=== PATIENT | male | born 1940 | race Caucasian/White ===

== ENCOUNTER 2016-09-08 06:35 | Outpatient (CLI) | payer MEDICARE ==
[~2016-09-08] VITALS: Ht 177.8 cm; Wt 90.0 kg
[~2016-09-08 06:35] MED LIST: ARANESP40 MCG/ML SQ; BACTROBAN NASAL1 GM NS; BAYER CHEWABLE81 MG PO; BUMEX2 MG; COLCRYS0.6 MG PO; COREG12.5 MG PO; FERRLECIT62.5 MG/5 IV; GLUCOTROL 5 MG T5 MG PO; HYTRIN1 MG PO; LIDOCAINE-PRILOC5 GM TP; ORAPRED ODT10 MG/TAB PO; PRINIVIL20 MG PO; SEA OMEGA; ZANTAC150 MG PO; ZOCOR20 MG PO; ZYLOPRIM100 MG PO
--- NOTE | 2016-09-08 07:30 | NUR ---
ASSESSMENT AND HISTORY COMPLETED. #20 GUAGE IV STARTED FOR PLATELET INFUSION.
[2016-09-08] MEDS ORDERED: TACROLIMUS ANHYD1 MG PO (07:40)
--- NOTE | 2016-09-08 07:40 | NUR ---
FIRST UNIT OF PLATELETS STARTED WITH BLOOD TUBING AND NS.
[2016-09-08] MEDS ORDERED: PREDNISONE5 MG PO (07:41)
[2016-09-08] MEDS ORDERED: CELLCEPT250 MG PO (07:41)
[2016-09-08] MEDS ORDERED: KLOR-CON M2020 MEQ PO (07:42)
[2016-09-08] MEDS ORDERED: FUROSEMIDE40 MG PO (07:43)
[2016-09-08] MEDS ORDERED: LASIX80 MG PO (07:43)
[2016-09-08] MEDS ORDERED: MAGNESIUM OXID420 MG PO (07:45)
[2016-09-08] MEDS ORDERED: GLUCOTROL 5 MG T5 MG PO (07:46)
[2016-09-08] MEDS ORDERED: LANTUS SOL100 UNIT/1 SC ×2 (07:46)
[2016-09-08] MEDS ORDERED: LIPITOR20 MG PO (07:47)
[2016-09-08] MEDS ORDERED: PACERONE200 MG PO (07:48)
[2016-09-08] MEDS ORDERED: HYTRIN1 MG PO (07:48)
--- NOTE | 2016-09-08 07:55 | NUR ---
FIRST UNIT COMPLETED. SECOND UNIT OF PLATELETS UP WITH NS AND BLOOD TUBING. NO RASH OR FEVER. STATES "I HAD SOME ITCHING, IT'S GONE NOW THOUGH." "I USUALLY HAVE A LITTLE ITCHING WHEN I GET PLATELETS". INSTRUCTED THAT ITCHING COULD BE A SIGN OF REACTION. STATES "I THINK I JUST GOT HOT. DENIES ITCHING AT THIS TIME. NO RASH, FEVER NOTED. VITAL SIGNS STABLE.
[2016-09-08 07:59] VITALS: Ht 177.8 cm; Wt 90.0 kg
--- NOTE | 2016-09-08 08:40 | NUR ---
SECOND UNIT COMPLETED. NO ITCHING, RASH, OR FEVER. UP TO BATHROOM, VOIDED WITHOUT DIFFICULTY. IV CONVERTED TO SL FOR DENTAL PROCEDURE.
== END 2016-09-08 09:40 ==
LOC: D.OPS 06:35
DX: Z01.818 Encounter for other preprocedural examination (principal); D69.6 Thrombocytopenia, unspecified

== ENCOUNTER → 2017-11-07 13:00 | Outpatient (CLI) | payer MEDICARE ==
[2016-09-08 07:59] VITALS: BMI 28.4
[~2017-11-07 13:00] MED LIST changes: +CELLCEPT250 MG PO; +FUROSEMIDE40 MG PO; +KLOR-CON M2020 MEQ PO; +LANTUS SOL100 UNIT/1 SC; +LASIX80 MG PO; +LIPITOR20 MG PO; +MAGNESIUM OXID420 MG PO; +PACERONE200 MG PO; +PREDNISONE5 MG PO; +TACROLIMUS ANHYD1 MG PO
== END | disposition home or self-care (01) ==
LOC: D.RAD 13:00
DX: M54.5 Low back pain (principal); M25.551 Pain in right hip

== ENCOUNTER 2018-06-07 18:58 | Inpatient (IN) | payer OTHER ==
[~2018-06-07] VITALS: Ht 177.8 cm; Wt 94.3 kg
[2018-06-07] MEDS ORDERED: CELLCEPT250 MG PO (19:08)
[2018-06-07] MEDS ORDERED: SANDIMMUNE100 MG PO (19:08)
[2018-06-07] MEDS ORDERED: CELEXA20 MG PO (19:09)
[2018-06-07] MEDS ORDERED: MAGNESIUM OXID420 MG PO (19:09)
[2018-06-07] MEDS ORDERED: TERAZOSIN HCL2 MG PO (19:09)
[2018-06-07 19:57] LABS: APPEARANCE CLEAR (CLEAR); BILIRUBIN NEGATIVE (NEGATIVE); COLOR YELLOW (YELLOW); GLUCOSE 50 mg/dL (NEGATIVE); KETONE NEGATIVE (NEGATIVE); NITRITE NEGATIVE (NEGATIVE); PROTEIN TRACE mg/dL (NEGATIVE); UROBILINOGEN NORMAL (NORMAL)
[2018-06-07 20:00] LABS: RED CELLS - URINE OCC /hpf (0-5)
[2018-06-07 20:01] LABS: BACTERIA FEW /hpf (NONE SEEN)
[2018-06-07 20:52] LABS: BASOPHILS 0.2 % (0-2); EOSINOPHILS 0.9 % (0-7); HEMATOCRIT 42.6 % (42.0-54.0); HEMOGLOBIN 14.2 g/dL (13.5-17.5); IMMATURE GRANULOCYTES 0.5 % (0-5); LYMPHOCYTES 9.5 % (15-50); MCH 30.9 pg (26.0-34.0); MCHC 33.3 g/dL (31.0-37.0); MCV 92.8 fL (80.0-100.0); MEAN PLATELET VOLUME 12.2 fL (7.4-10.4); MONOCYTES 7.1 % (2-11); NEUTROPHILS 81.8 % (40-80); RBC 4.59 10x6/uL (4.20-6.10); RDW 15.5 % (11.5-14.5)
[2018-06-07 20:57] LABS: PLATELET COUNT 102 10x3/uL (130-400)
[2018-06-07 20:58] LABS: APTT 34.9 SECONDS (22.8-39.4); INR 1.21 (0.85-1.17); PROTIME 14.8 SECONDS (11.6-15.0)
[2018-06-07 21:02] LABS: ALBUMIN 3.3 g/dL (3.4-5.0); ALKALINE PHOSPHATASE 123 U/L (46-116); ALT (SGPT) 16 U/L (10-68); BILIRUBIN - TOTAL 1.28 mg/dL (0.2-1.3); CALC OSMOLALITY 299 mosm/kg (275-300); CALCIUM 9.1 mg/dL (8.5-10.1); CARBON DIOXIDE 27.7 mmol/L (21.0-32.0); CHLORIDE - SERUM 103 mmol/L (98-107); CREATININE - SERUM 1.3 mg/dL (0.6-1.3); GLUCOSE 252 mg/dL (74-106); POTASSIUM - SERUM 3.4 mmol/L (3.5-5.1); PROTEIN - SERUM 6.7 g/dL (6.4-8.2); SODIUM 143 mmol/L (136-145); UREA NITROGEN 28 mg/dL (7-18); eGFR NON AFRICAN AMERICAN 57 mL/min (90-120)
[2018-06-07 21:14] LABS: CKMB 1.5 U/L (0.0-3.6); CREATINE KINASE 60 UL (21-232)
[2018-06-07 21:19] LABS: TROPONIN-I < 0.017 ng/mL (0.000-0.060)
--- NOTE | 2018-06-07 23:33 | NUR ---
PT ARRIVED TO FLOOR BY WHEELCHAIR, NO S/S OF DISTRESS. INTRODUCED SELF TO PT. PT DENIES FURTHER NEEDS AT THIS TIME. VITALS STABLE. CALL LIGHT IN REACH. WILL CTM.
[2018-06-07 23:46] VITALS: BP 122/64; BMI 29.5
--- NOTE | 2018-06-07 23:54 | NUR ---
RESEARCH PSYCHOLOGIST ASSESSMENT COMPLETED. PT DENIED ANY DISCOMFORT. VSS. IV TO RAC SL. L ARM RED AND SWOLLEN TO SHOULDER. FISTULA NOTED WITH BRUIT AND THRILL OBTAINED. SORE UNDER UMBILICUS APPROX 6CM IN DIAMETER. LUNGS ESSENTIALLY CTA. CALL LIGHT WITHIN REACH.
[2018-06-08] VITALS (7 sets, daily range): BP systolic 121–148; BP diastolic 64–89
[2018-06-08 05:37] LABS: BASOPHILS 0.2 % (0-2); EOSINOPHILS 1.6 % (0-7); HEMATOCRIT 38.9 % (42.0-54.0); HEMOGLOBIN 13.2 g/dL (13.5-17.5); IMMATURE GRANULOCYTES 0.5 % (0-5); LYMPHOCYTES 11.5 % (15-50); MCH 31.2 pg (26.0-34.0); MCHC 33.9 g/dL (31.0-37.0); MONOCYTES 6.8 % (2-11); NEUTROPHILS 79.4 % (40-80); PLATELET COUNT 118 10x3/uL (130-400); RBC 4.23 10x6/uL (4.20-6.10); RDW 15.3 % (11.5-14.5); WBC 12.1 10x3/uL (4.8-10.8)
[2018-06-08 05:58] LABS: ANION GAP 15.7 mmol/L (8-16); CALCIUM 8.6 mg/dL (8.5-10.1); CREATININE - SERUM 1.1 mg/dL (0.6-1.3); MAGNESIUM - SERUM 1.7 mg/dL (1.8-2.4); PHOSPHOROUS 2.7 mg/dL (2.5-4.9)
[2018-06-08 06:29] LABS: POTASSIUM - SERUM 2.7 mmol/L (3.5-5.1)
--- NOTE | 2018-06-08 06:33 | NUR ---
PAGED NURSE PRACTICIONER CASSEROLE PREPARER REGARDING PT POTASSIUM OF 2.7.
--- NOTE | 2018-06-08 06:41 | NUR ---
NURSE PRACTICIONER ASIYA HARRISON CALLED BACK, ORDERED 40 MEQ OF KDUR TO BE GIVEN NOW AND THEN 40 MEQ TO BE GIVEN AT 11 AND THEN RECHECKED
--- NOTE | 2018-06-08 07:30 | NUR ---
A/A/OX4. DENIES ANY PAIN OR DISCOMFORT AND NO REQUESTS VOICED. ASSESSMENT COMPLETED. WILL CONTINUE POC. BED IN LOW POSITION AND LOCKED. SIDERAILS UP X 2 AND CALL LIGHT IN REACH.
--- NOTE | 2018-06-08 16:09 | NUR ---
AGRRE WITH STRUCTURES MECHANIC ASSESSMENT
--- NOTE | 2018-06-08 19:37 | NUR ---
AWAKE AND ALERT PATIENT IS APPEARENTLY TALKING SOME MEDS ON HIS OWN AND WAS REPORTED MD AWARE...LCTA AND SKIN WARM AND DRY
--- NOTE | 2018-06-09 00:39 | NUR ---
I have reviewed this patient and I concur with the Shift Assessment completed by the Licensed Practical Nurse today this shift.
[2018-06-09 03:55] VITALS: BP 118/90
[2018-06-09 06:19] LABS: BASOPHILS 0.2 % (0-2); EOSINOPHILS 2.8 % (0-7); HEMATOCRIT 39.6 % (42.0-54.0); HEMOGLOBIN 13.1 g/dL (13.5-17.5); IMMATURE GRANULOCYTES 0.9 % (0-5); LYMPHOCYTES 11.1 % (15-50); MCH 30.5 pg (26.0-34.0); MCHC 33.1 g/dL (31.0-37.0); MCV 92.1 fL (80.0-100.0); MEAN PLATELET VOLUME 12.4 fL (7.4-10.4); MONOCYTES 7.3 % (2-11); NEUTROPHILS 77.7 % (40-80); PLATELET COUNT 123 10x3/uL (130-400); RDW 15.2 % (11.5-14.5); WBC 11.6 10x3/uL (4.8-10.8)
[2018-06-09 06:36] LABS: ANION GAP 13.3 mmol/L (8-16); CALCIUM 8.4 mg/dL (8.5-10.1); CARBON DIOXIDE 26.7 mmol/L (21.0-32.0); CREATININE - SERUM 1.2 mg/dL (0.6-1.3); PHOSPHOROUS 2.9 mg/dL (2.5-4.9); VANCOMYCIN - RANDOM 3.4 ug/mL (10.0-20.0)
[2018-06-09 06:38] LABS: MAGNESIUM - SERUM 2.3 mg/dL (1.8-2.4)
[2018-06-09 08:05] VITALS: BP 141/104
[2018-06-09 12:26] VITALS: BP 136/98
[2018-06-09 15:49] VITALS: BP 132/86
--- NOTE | 2018-06-09 17:23 | NUR ---
AGREE WITH SALES AND MARKETING DIRECTOR ASSESSMENT
[2018-06-09 19:55] VITALS: BP 142/82
--- NOTE | 2018-06-09 20:04 | NUR ---
GREETED PATIENT AND INTRODUCED MYSELF HIS NURSE FOR THE EVENING. PATIENT IS LAYING IN BED IN SUPINE POSITION AND DENIES ANY NEEDS AT THIS TIME. FLUSHED RT AC IV AND SALINE LOCKED. PATIENT TOLERATED PROCEDURE. CALL LIGHT IN REACH.
--- NOTE | 2018-06-10 01:05 | NUR ---
PATIENT ASLEEP WITH EYES CLOSED LAYING IN SUPINE POSITION. HOB AT 15 DEGREES. RESPIRATIONS EVEN. NO S/S OF DISTRESS. CALL LIGHT IN REACH.
--- NOTE | 2018-06-10 02:59 | NUR ---
RECEIVED PHONE CALL FROM LAB STATING THAT PATIENT HAD PRELIMINARY POSITIVE BLOOD CULTURE FOR GRAM POSITIVE RODS. WILL PASS INFORMATION TO ONCOMING NURSE.
--- NOTE | 2018-06-10 03:15 | NUR ---
PATIENT AWAKE AND SITTING ON SIDE OF BED. PATIENT STATED THAT HE FELT LIKE HE HAD INDIGESTION BUT REFUSED TO TAKE ANYTHING FOR IT.
[2018-06-10 03:50] VITALS: BP 147/99
[2018-06-10 07:14] LABS: BASOPHILS 0.2 % (0-2); EOSINOPHILS 2.4 % (0-7); HEMATOCRIT 39.1 % (42.0-54.0); HEMOGLOBIN 12.9 g/dL (13.5-17.5); IMMATURE GRANULOCYTES 1.5 % (0-5); LYMPHOCYTES 10.9 % (15-50); MCH 30.5 pg (26.0-34.0); MCV 92.4 fL (80.0-100.0); MEAN PLATELET VOLUME 12.3 fL (7.4-10.4); MONOCYTES 7.8 % (2-11); NEUTROPHILS 77.2 % (40-80); PLATELET COUNT 114 10x3/uL (130-400); RBC 4.23 10x6/uL (4.20-6.10); RDW 15.2 % (11.5-14.5); WBC 12.1 10x3/uL (4.8-10.8)
[2018-06-10 07:26] LABS: ANION GAP 15.5 mmol/L (8-16); CALCIUM 8.6 mg/dL (8.5-10.1); CARBON DIOXIDE 24.6 mmol/L (21.0-32.0); CREATININE - SERUM 1.3 mg/dL (0.6-1.3); PHOSPHOROUS 2.8 mg/dL (2.5-4.9); POTASSIUM - SERUM 3.1 mmol/L (3.5-5.1); VANCOMYCIN - RANDOM 7.6 ug/mL (10.0-20.0)
--- NOTE | 2018-06-10 07:38 | NUR ---
REPORT RECEIVED. WILL CONTINUE WITH POC. PT IS CURRENTLY LYING SEMI FOWLERS. CALL LIGHT W/I REACH. PT IS AAO AND UP WITH ASSIST. R.AC PIV IS SALINE LOCKED. RR EVEN AND UNLABORED ON RA. PT DENIES ANY NEEDS AT THIS TIME. NO S/S OF DISTRESS NOTED. WILL CTM.
[2018-06-10 08:28] VITALS: BP 135/64
--- NOTE | 2018-06-10 11:16 | NUR ---
HAD LONG DISCUSSION WITH PATIENT OVER MEDICATIONS. PT REFUSED TO TAKE CELLCEPT AND CYCLOSPORINE STATING "YALL DONT GIVE ME THE RIGHT DOSE, PHARMACY TOLD ME TO KEEP MY MEDS IN THE ROOM, TO TAKE MY OWN MEDS, AND THOSE MEDS ARE TOO EXPENSIVE, IM NOT TAKING THEM." PT WOULD ALLOW ME TO ADMINISTER VARIOUS OTHER SCHEDULED AM MEDICATIONS. WILL NOTIFY PHYSICIAN. WILL CTM.
[2018-06-10 11:40] VITALS: BP 119/68
[2018-06-10 14:55] VITALS: BP 123/62
--- NOTE | 2018-06-10 15:47 | NUR ---
I have reviewed this patient and I concur with the Shift Assessment completed by the Licensed Practical Nurse today this shift.
--- NOTE | 2018-06-10 15:47 | NUR ---
I have reviewed this patient and I concur with the Shift Assessment completed by the Licensed Practical Nurse today this shift.
[2018-06-10 20:05] VITALS: BP 133/77
--- NOTE | 2018-06-11 01:45 | NUR ---
RESTING ON LEFT SIDE, RESPERATIONS EVEN, NO S/S DISTRESS NOTED.
[2018-06-11 03:47] VITALS: BP 141/95
[2018-06-11 05:50] LABS: BASOPHILS 0.6 % (0-2); EOSINOPHILS 2.7 % (0-7); HEMATOCRIT 38.1 % (42.0-54.0); HEMOGLOBIN 12.6 g/dL (13.5-17.5); MCH 30.4 pg (26.0-34.0); MCHC 33.1 g/dL (31.0-37.0); MEAN PLATELET VOLUME 12.3 fL (7.4-10.4); MONOCYTES 6.7 % (2-11); PLATELET COUNT 118 10x3/uL (130-400); RBC 4.14 10x6/uL (4.20-6.10); RDW 15.1 % (11.5-14.5); WBC 10.8 10x3/uL (4.8-10.8)
[2018-06-11 06:29] LABS: ANION GAP 12.3 mmol/L (8-16); CALCIUM 8.6 mg/dL (8.5-10.1); CARBON DIOXIDE 25.6 mmol/L (21.0-32.0); CREATININE - SERUM 1.2 mg/dL (0.6-1.3); MAGNESIUM - SERUM 1.8 mg/dL (1.8-2.4); PHOSPHOROUS 3.1 mg/dL (2.5-4.9); VANCOMYCIN - RANDOM 10.1 ug/mL (10.0-20.0)
[2018-06-11 06:42] LABS: POTASSIUM - SERUM 2.9 mmol/L (3.5-5.1)
--- NOTE | 2018-06-11 07:00 | NUR ---
RECEIVED BEDSIDE SHIFT REPORT. ASSUMED CARE OF PATIENT. PATIENT ALERT, AWAKE. FAMILY AT BEDSIDE. CALL LIGHT WITHIN REACH. NO DISTRESS. DENIES NEEDS AT THIS TIME.
--- NOTE | 2018-06-11 07:30 | NUR ---
SOCKS AND LOTION PROVIDED REQUESTED.
[2018-06-11 08:26] VITALS: BP 159/79
--- NOTE | 2018-06-11 09:45 | NUR ---
K+ RIDER #2 HUNG AT THIS TIME. NO DISTRESS. CALL LIGHT AND PHONES WITHIN REACH.
--- NOTE | 2018-06-11 11:02 | NUR ---
K+ RIDER #3 HUNG AT THIS TIME. NO DISTRESS.
[2018-06-11 11:44] VITALS: BP 155/74
--- NOTE | 2018-06-11 12:00 | NUR ---
K+ RIDER #4 HUNG AT THIS TIME. NO DISTRESS.
--- NOTE | 2018-06-11 12:07 | NUR ---
FSBS 244. 5 UNITS HUMALOG ADMINISTERED ORDERED.
--- NOTE | 2018-06-11 12:45 | MORECARE ---
CASE MANAGEMENT DISCHARGE SUMMARY PATIENT: SANTY SEO JR UNIT: [id number] ADM DATE: 06/07/18 AGE: 77 : 39 SEX: M ROOM/BED: D.2133 AUTHOR: TOBIN KIRKPATRICK PHYSICIAN: REFERRING PHYSICIAN: VEE BILLINGS MD DATE OF SERVICE: 06/11/18 Discharge Plan Patient Name: SANTY SEO Facility: [facility]:[place] : 1940 Planned Disposition: Anticipated Discharge Date: Discharge Date: Expected LOS: Initial Reviewer: [id number] Initial Review Date: 06/11/2018 Generated: 06/11/18 1:45 pm Comments DCP- Discharge Planning Updated by [email or web address]: Shameka Mckeon on 06/11/18 11:[address] Patient Name: SANTY SEO Admission Status: ER Accout number: [id number] Admission Date: 06-07-2018 : 1940 Admission Diagnosis: Attending: Vee Billings Current LOS: 4 Anticipated DC Date: Planned Disposition: Primary Insurance: [employer]gree Discharge Planning Comments: CM MET WITH PATIENT ABOUT DC PLANNING/NEEDS. DENIES NEEDS AT THIS TIME. STATES PLANS TO DC TO HOME WITH WHEN BETTER. CM WILL FOLLOW AND ASSIST NEEDED WITH DC PLANNING/NEEDS. Certified Legal Secretary Specialist: Shameka Mckeon DCPIA - Discharge Planning Initial Assessment Updated by [email or web address]: Shameka Mckeon on 06/11/18 12:41 pm * Is the patient Alert and Oriented? Yes * PCP JOAN * Pharmacy [facility] * Preadmission Environment Home with Family * ADLs Independent * Equipment None * List name and contact numbers for known caregivers / representatives who currently or will assist patient after discharge: DE MENDEZ, * Verbal permission to speak to the caregivers and representatives has been obtained from the patient. Yes * Community resources currently utilized None * Additional services required to return to the preadmission environment? No * Can the patient safely return to the preadmission environment? Yes * Has this patient been hospitalized within the prior 30 days at any hospital? No Patient Name: SANTY SEO Page [phone] at 1245 All edits/amendments must be made on the electronic document DICTATION DATE: 06/11/181243 SUPERMARKET MANAGER: JUMANA 06/11/181243 RPT#: [id number] [place] DATE: STATUS: ADM IN [facility] [address] [place] [address] END OF REPORT
[2018-06-11 15:34] VITALS: BP 153/82
--- NOTE | 2018-06-11 16:34 | NUR ---
FSBS 204. 5 UNITS HUMALOG ADMINISTERED PER ORDER.
--- NOTE | 2018-06-11 19:30 | NUR ---
BEDSIDE REPORT RECEIVED, PT IS AAO. PT HAS RIGHT AC PATENT CDI, PT IS [place] AND [place], NO S/S OF DISTRESS. NAME AND DATE PLACED ON BOARD. PT BEDLOW AND CALL LIGHT IN REACH. PT WILL CALL FOR ASSIST WILL CPOC
[2018-06-11 20:00] VITALS: BP 149/79
--- NOTE | 2018-06-11 21:15 | NUR ---
FSBS IS 279 PT ONLY GETS LANTUS 5 UNITS PT SITTING ON SIDE OF BED. DENIES ANY NEEDS. NO S/S OF DISTRESS. WILL CPOC
[2018-06-11 23:55] VITALS: BP 137/90
--- NOTE | 2018-06-12 00:12 | NUR ---
PT SITTING ON SIDE OF BED. COMPLAINS OF COUGH. STATES PRODUCTIVE AT TIMES. PT STATES HE HAS A HISTORY OF IRREGULAR HR AND A FIB BUT JUST WHEN HE IS SICK. STATES HE DOESNT TAKE ANY MEDICATION AT HOME FOR IT. 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
--- NOTE | 2018-06-12 01:54 | NUR ---
PT ASLEEP. RESP EVEN AND UNLABORED. BEDLOW AND CALL LIGHT IN REACH. WILL CPOC
--- NOTE | 2018-06-12 02:26 | NUR ---
PT COMPLAINS OF DYSPNEA. ONCE PT COUGHED UP SOME WHITE SPUTUM AND DIDNT LAY FLAT HE STATED HE FEELS BETTER. PT LAYING IN BED WITH HOB 35 DEGREE. HAS NO S/S OF DISTRESS. STATES HE IS SORRY FOR BOTHERING NURSE. ENCOURAGED PT TO CALL IF ANY MORE DYSPNEA OR SOB. PT AGREED. PT WILL CALL FOR ASSIST WHEN NEEDED. WILL CPOC
[2018-06-12 03:55] VITALS: BP 148/82
[2018-06-12 06:51] LABS: BASOPHILS 0.5 % (0-2); EOSINOPHILS 2.9 % (0-7); HEMATOCRIT 38.9 % (42.0-54.0); HEMOGLOBIN 12.8 g/dL (13.5-17.5); IMMATURE GRANULOCYTES 2.1 % (0-5); MCH 30.3 pg (26.0-34.0); MCHC 32.9 g/dL (31.0-37.0); MCV 92.2 fL (80.0-100.0); MEAN PLATELET VOLUME 12.5 fL (7.4-10.4); MONOCYTES 6.1 % (2-11); NEUTROPHILS 78.4 % (40-80); PLATELET COUNT 134 10x3/uL (130-400); RBC 4.22 10x6/uL (4.20-6.10); RDW 15.1 % (11.5-14.5); WBC 10.9 10x3/uL (4.8-10.8)
--- NOTE | 2018-06-12 07:10 | NUR ---
REPORT RECIEVED FORM INTERNAL REVIEW AND AUDIT COMPLIANCE. PATIENT LAYING IN BED ON LEFT SIDE WITH EYES CLOSED AND BREATHING EVENLY. WILL CONTINUE TO MONITOR. SR UP X 2 BED IN LOW POTION AND CALL LIGHT IN REACH.
[2018-06-12 07:11] LABS: ALBUMIN 2.8 g/dL (3.4-5.0); BILIRUBIN - TOTAL 1.31 mg/dL (0.2-1.3); CALCIUM 8.7 mg/dL (8.5-10.1); CARBON DIOXIDE 24.2 mmol/L (21.0-32.0); CREATININE - SERUM 1.2 mg/dL (0.6-1.3); PHOSPHOROUS 2.9 mg/dL (2.5-4.9); POTASSIUM - SERUM 3.2 mmol/L (3.5-5.1); PROTEIN - SERUM 6.6 g/dL (6.4-8.2); VANCOMYCIN - RANDOM 17.8 ug/mL (10.0-20.0)
--- NOTE | 2018-06-12 07:21 | NUR ---
PT FSBS IS 125 NO INSULIN NEED. PT FAMILY AT BEDSIDE. PT WILL CALL FOR ASSIST
--- NOTE | 2018-06-12 09:00 | NUR ---
PATIENT IS STABLE AND VSS. PATIENT DENIES ANY NEEDS OR PAIN. ASSESSMENT COMPLETED. WILL CONTINUE WITH PLAN OF CARE. SR UP X 2 BED IN LOW POSITON AND CALL LIGHT IN REACH.
[2018-06-12 10:23] VITALS: BP 156/117
[2018-06-12 14:36] VITALS: BP 150/86
[2018-06-12 16:59] VITALS: BP 152/77
--- NOTE | 2018-06-12 17:51 | NUR ---
PATIENT SITTING UP IN BED EATING SUPPER AND VISITING WITH FAMILY. PATIENT DENEIS ANY NEEDS OR PAIN. PATIENT IS STABLE AND VSS. WILL CONTINUE TO MONITOR. SR UP X 2 BED IN LOW POSITON AND CALL LIGHT IN REACH.
--- NOTE | 2018-06-12 19:40 | NUR ---
PT RESTING IN BED. PT STATES FEELS BETTER NOW THAT HE COUGHED UP SOME OF THE SPUTUM. PT DENIES ANY NEEDS AT THIS TIME. CHECKED FSBS IT IS 216 PT BEDLOW AND CALL LIGHT INREACH. NAME AND DATE PLACED ON BOARD. PT WILL CALL FOR ASSIST WHEN NEEDED. WILL CPOC
[2018-06-12 20:32] VITALS: BP 129/85
--- NOTE | 2018-06-12 21:33 | NUR ---
5 UNITS OF LANTUS GIVEN ORDERED. FSBS IS 216 NOURISHMENT OFFERED. PT SITTING ON SIDE OF BED. COUGHING PRODUCTIVE. WHITE-YELLOW SPUTUM. PT HAS NO S/S OF DISTRESS. BEDLOW AND CALL LIGHT IN REACH. WILL CPOC
[2018-06-13 00:04] VITALS: BP 137/48
--- NOTE | 2018-06-13 00:05 | NUR ---
PT AROUSED TO NURSE IN ROOM. ZOSYN STARTED ORDERED. PT UP TO USE URINAL. PT DENIES ANY NEEDS. NO S/S OF DISTRESS. WILL CPOC
--- NOTE | 2018-06-13 01:59 | NUR ---
PT ASLEEP. RESP EVEN AND UNLABORED. BEDLOW AND CALL LIGHT IN REACH. PT HAS NO S/S OF DISTRESS. NOURISHMENT IN REACH. WILL CPOC
[2018-06-13 05:31] LABS: BASOPHILS 0.5 % (0-2); HEMOGLOBIN 13.3 g/dL (13.5-17.5); IMMATURE GRANULOCYTES 3.4 % (0-5); MCH 30.3 pg (26.0-34.0); MCHC 33.3 g/dL (31.0-37.0); MCV 91.1 fL (80.0-100.0); MEAN PLATELET VOLUME 11.9 fL (7.4-10.4); MONOCYTES 7.1 % (2-11); PLATELET COUNT 143 10x3/uL (130-400); RBC 4.39 10x6/uL (4.20-6.10); WBC 9.1 10x3/uL (4.8-10.8)
[2018-06-13 05:58] LABS: ANION GAP 16.3 mmol/L (8-16); CALCIUM 8.5 mg/dL (8.5-10.1); CARBON DIOXIDE 24.4 mmol/L (21.0-32.0); CREATININE - SERUM 1.1 mg/dL (0.6-1.3); PHOSPHOROUS 2.9 mg/dL (2.5-4.9)
--- NOTE | 2018-06-13 05:58 | NUR ---
PT SET UP ON SIDE OF BED ONCE NURSE CAME INTO ROOM. PT STATES HE EMPTIED URINAL ON OWN LAST NIGHT. HAD PT APPROX. GIVE NURSE CORRECT MEASUREMENTS AND EXPRESSED IMPORTANCE OF CORRECT OUTPUT. PT VERBALIZED UNDERSTANDING. PT WILL CALL FOR ASSIST. WILL CPOC
[2018-06-13 06:04] VITALS: BP 171/90
[2018-06-13 06:11] LABS: POTASSIUM - SERUM 2.7 mmol/L (3.5-5.1)
--- NOTE | 2018-06-13 06:35 | NUR ---
NO INSULIN NEEDED PER SLIDING SCALE. PT WILL CALL FOR ASSIST WHEN NEEDED.
--- NOTE | 2018-06-13 07:10 | NUR ---
REPORT RECIEVED FROM MARKETING STRATEGY LEAD. PATIENT IS AWAKE AND ALERT. VSS. PATIENT DENIES ANY NEEDS OR PAIN. WILL CONTINUE WITH PLAN OF CARE.
[2018-06-13 07:53] VITALS: BP 163/80
--- NOTE | 2018-06-13 09:30 | NUR ---
PATIENT ASSESMENT COMPLETED. VSS. WILL CONTINUE TO MONITOR. SR UP X 2 BED IN LOW POSTION AND CALL LIGHT IN REACH.
[2018-06-13 11:18] VITALS: BP 151/85
[2018-06-13 15:44] VITALS: BP 174/95
--- NOTE | 2018-06-13 16:15 | NUR ---
PATIENT IS STABLE AND UNCHANGED. VSS. PATIENT DENIES ANY NEEDS OR PAIN. WILL CONTINUE TO MONITOR. FAMILY AT BEDSIDE. SR UP X 2 BED IN LOW POSTION AND CALL LIGHT IN REACH.
--- NOTE | 2018-06-13 19:40 | NUR ---
RESUMING CARE. PT SITTING UP ON SIDE OF BED A&O BREATH SOUNDS EVEN UNLABORED , RT WRIST IV RUNNING NS , PT IS RESERVED LEFT ARM FAMILY AT BEDSIDE CL IN REACH WILL CONT TO MONITOR
[2018-06-13 20:00] VITALS: BP 162/98
[2018-06-14 04:00] VITALS: BP 137/79
[2018-06-14 06:33] LABS: BASOPHILS 0.4 % (0-2); EOSINOPHILS 2.7 % (0-7); HEMATOCRIT 41.4 % (42.0-54.0); HEMOGLOBIN 13.7 g/dL (13.5-17.5); IMMATURE GRANULOCYTES 3.2 % (0-5); MCH 30.2 pg (26.0-34.0); MCHC 33.1 g/dL (31.0-37.0); MCV 91.4 fL (80.0-100.0); MEAN PLATELET VOLUME 12.9 fL (7.4-10.4); MONOCYTES 7.7 % (2-11); PLATELET COUNT 147 10x3/uL (130-400); RBC 4.53 10x6/uL (4.20-6.10); RDW 15.1 % (11.5-14.5); WBC 7.8 10x3/uL (4.8-10.8)
[2018-06-14 06:55] LABS: ANION GAP 20.3 mmol/L (8-16); CALCIUM 8.6 mg/dL (8.5-10.1); CARBON DIOXIDE 16.3 mmol/L (21.0-32.0); CREATININE - SERUM 1.1 mg/dL (0.6-1.3); MAGNESIUM - SERUM 1.7 mg/dL (1.8-2.4); PHOSPHOROUS 2.8 mg/dL (2.5-4.9); POTASSIUM - SERUM 3.6 mmol/L (3.5-5.1); VANCOMYCIN - RANDOM 7.5 ug/mL (10.0-20.0)
[2018-06-14 08:00] VITALS: BP 149/86
[2018-06-14 12:00] VITALS: BP 111/69
[2018-06-14 13:25] VITALS: Ht 177.8 cm; Wt 94.3 kg
--- NOTE | 2018-06-14 15:33 | NUR ---
UP IN [facility] AMBUL[facility]ORY. C/O SOME SOB WHEN HE RETURNED TO ROOM. SPO2 READING 98%. STATES THE SOB EASED WHEN HE SAT DOWN. NO DISTRESS NOTED.
[2018-06-14 16:36] VITALS: BP 139/88
--- NOTE | 2018-06-14 17:14 | MORECARE ---
CASE MANAGEMENT DISCHARGE SUMMARY PATIENT: SANTY SEO JR UNIT: [id number] ADM DATE: 06/07/18 AGE: 77 : 39 SEX: M ROOM/BED: D.2133 AUTHOR: TOBIN KIRKPATRICK PHYSICIAN: REFERRING PHYSICIAN: VEE BILLINGS MD DATE OF SERVICE: 06/14/18 Discharge Plan Patient Name: SANTY SEO Facility: [facility]:[place] : 1940 Planned Disposition: Home with Home Health Anticipated Discharge Date: 06/15/18 Discharge Date: Expected LOS: 8 Initial Reviewer: [email or web address] Initial Review Date: 06/11/2018 Generated: 06/14/18 6:13 pm Comments DCP- Discharge Planning Updated by [id number]: Shameka cMkeon on 06/11/18 11:[address] Patient Name: SANTY SEO Admission Status: ER Accout number: [id number] Admission Date: 06-07-2018 : 1940 Admission Diagnosis: Attending: Vee Billings Current LOS: 4 Anticipated DC Date: Planned Disposition: Primary Insurance: [employer] Discharge Planning Comments: CM MET WITH PATIENT ABOUT DC PLANNING/NEEDS. DENIES NEEDS AT THIS TIME. STATES PLANS TO DC TO HOME WITH WHEN BETTER. CM WILL FOLLOW AND ASSIST NEEDED WITH DC PLANNING/NEEDS. Mother Tester: Shameka Mckeon DCPIA - Discharge Planning Initial Assessment Updated by [id number]: Shameka Mckeon on 06/11/18 12:41 pm * Is the patient Alert and Oriented? Yes * PCP JOAN * Pharmacy [facility] * Preadmission Environment Home with Family * ADLs Independent * Equipment None * List name and contact numbers for known caregivers / representatives who currently or will assist patient after discharge: DE MENDEZ, * Verbal permission to speak to the caregivers and representatives has been obtained from the patient. Yes * Community resources currently utilized None * Additional services required to return to the preadmission environment? No * Can the patient safely return to the preadmission environment? Yes * Has this patient been hospitalized within the prior 30 days at any hospital? No External Providers [facility] Next Contact Date: 06/14/2018 Service Request Date: Service Type: Resolution: Reviewer: Comments: Coverage Notice Reviewer: [id number] Pia Pantoja Notice Issued Date-Time: 06/14/2018 14:45 Notice Type: Patient Choice Letter Notice Delivered To: Patient Relationship to Patient: Senior Loan Processor Name: Delivery Method: HAND - Hand Delivered [place] Days: Prior Verbal Notification: Recipient Understood Notice: Yes Recipient Signature: Yes Med Rec Note Co-signed by Attending: Coverage Notice Comment: ANY [facility] AGENCY IN NETWORK WITH INSURANCE Reviewer: [id number] Pia Pantoja Notice Issued Date-Time: 06/14/2018 14:45 Notice Type: IM Discharge Notice Notice Delivered To: Patient Relationship to Patient: Senior Loan Processor Name: Delivery Method: HAND - Hand Delivered [place] Days: Prior Verbal Notification: Recipient Understood Notice: Yes Recipient Signature: Yes Med Rec Note Co-signed by Attending: Coverage Notice Comment: Last DP export: 06/11/18 11:45 a Patient Name: SANTY SEO Page 39697 at 1714 All edits/amendments must be made on the electronic document DICTATION DATE: 06/14/181712 LOUVER MORTISER OPERATOR: JUMANA 06/14/181712 RPT#: [id number] DC DATE: STATUS: ADM IN [facility] [address] [place] [address] END OF REPORT
--- NOTE | 2018-06-14 17:24 | NUR ---
PT RESTING QUIETLY RESP UNLABORED TELEMETRY INTACT SINUS TACH 109
--- NOTE | 2018-06-14 17:29 | MORECARE ---
CASE MANAGEMENT DISCHARGE SUMMARY PATIENT: SANTY SEO JR UNIT: [id number] ADM DATE: 06/07/18 AGE: 77 : 39 SEX: M ROOM/BED: D.2133 AUTHOR: TOBIN KIRKPATRICK PHYSICIAN: REFERRING PHYSICIAN: VEE BILLINGS MD DATE OF SERVICE: 06/14/18 Discharge Plan Patient Name: SANTY SEO Facility: [facility]:[employer] : 1940 Planned Disposition: Home with Home Health Anticipated Discharge Date: 06/15/18 Discharge Date: Expected LOS: 8 Initial Reviewer: [email or web address] Initial Review Date: 06/11/2018 Generated: 06/14/18 6:28 pm Comments DCP- Discharge Planning Updated by [id number]: Dave Pantoja on 06/14/18 4:[address] Patient Name: SANTY SEO Admission Status: ER Accout number: [id number] Admission Date: 06-07-2018 : 1940 Admission Diagnosis:CELLULITIS OF LEFT UPPER LIMB Attending: Vee Billings Current LOS: 7 Anticipated DC Date: 06-15-2018 Planned Disposition: Home with Home Health Primary Insurance: [employer] PLANNED EXTERNAL PROVIDER: [facility] Discharge Planning Comments: CM RECEIVED DISCHARGE PLANNING ORDER. CM MET WITH PT ND SPOUSE IN ROOM TO DISCUSS DISCHARGE NEEDS AND PLANNING. SANTY ESO provided verbal consent to discuss current and ongoing needs with/in the presence of:, SPOUSE, ANDREA. CM DISCUSSED AVAILABILITY OF HOME HEALTH, REHAB SERVICES AND MEDICAL EQUIPMENT. PT DENIES DISCHARGE NEEDS BUT WILL ACCEPT HOME HEALTH AT ENCOURAGEMENT OF SPOUSE. SPOUSE TO TRANSPORT HOME AT DISCHARGE. IMPORTANT MESSAGE FROM MEDICARE PROVIDED AND EXPLAINED. CHOICE LISTING PROVIDED, PT HAD NO CHOICE OF PROVIDER, CHOICE SIGNED FOR ANY HOME HEALTH. CM CALLED AND SPOKE TO GAYLE CHERRY WHO PROVIDED HOME HEALTH ORDER. CM CALLED [facility], , SPOKE TO TERRY, REFERRAL PROVIDED, PT PLACED ON SCHEDULE FOR NEXT WEEK. TERRY WILL CHECK WITH INSURANCE AND NOTIFY PT IF THERE IS ANY COPAY FOR HOME HEALTH SERVICES. FOR DISCHARGE, FAX DISCHARGE INFORMATION TO [facility] AT [phone], NOT[facility] HOME HEALTH AT [phone]. Knitting Machine Fixer: Dave Pantoja DCP- Discharge Planning Updated by [id number]: Shameka Mckeon on 06/11/18 11:[address] Patient Name: SANTY SEO Admission Status: ER Accout number: [id number] Admission Date: 06-07-2018 : 1940 Admission Diagnosis: Attending: Vee Billings Current LOS: 4 Anticipated DC Date: Planned Disposition: [facility] Discharge Planning Comments: CM MET WITH PATIENT ABOUT DC PLANNING/NEEDS. DENIES NEEDS AT THIS TIME. STATES PLANS TO DC TO HOME WITH WHEN BETTER. CM WILL FOLLOW AND ASSIST NEEDED WITH DC PLANNING/NEEDS. Knitting Machine Fixer: Shameka Mckeon DCPIA - Discharge Planning Initial Assessment Updated by [id number]: Shameka Mckeon on 06/11/18 12:41 pm * Is the patient Alert and Oriented? Yes * PCP JOAN * Pharmacy [facility] * Preadmission Environment Home with Family * ADLs Independent * Equipment None * List name and contact numbers for known caregivers / representatives who currently or will assist patient after discharge: DE MENDEZ, * Verbal permission to speak to the caregivers and representatives has been obtained from the patient. Yes * Community resources currently utilized None * Additional services required to return to the preadmission environment? No * Can the patient safely return to the preadmission environment? Yes * Has this patient been hospitalized within the prior 30 days at any hospital? No Coverage Notice Reviewer: [email or web address] Pia Pantoja Notice Issued Date-Time: 06/14/2018 14:45 Notice Type: Patient Choice Letter Notice Delivered To: Patient Relationship to Patient: Return To Factory Clerk Name: Delivery Method: HAND - Hand Delivered [place] Days: Prior Verbal Notification: Recipient Understood Notice: Yes Recipient Signature: Yes Med Rec Note Co-signed by Attending: Coverage Notice Comment: ANY [facility] AGENCY IN NETWORK WITH INSURANCE Reviewer: [email or web address] Pia Pantoja Notice Issued Date-Time: 06/14/2018 14:45 Notice Type: IM Discharge Notice Notice Delivered To: Patient Relationship to Patient: Return To Factory Clerk Name: Delivery Method: HAND - Hand Delivered [place] Days: Prior Verbal Notification: Recipient Understood Notice: Yes Recipient Signature: Yes Med Rec Note Co-signed by Attending: Coverage Notice Comment: Last DP export: 06/14/18 4:14 p Patient Name: SANTY SEO Page [phone] at 1729 All edits/amendments must be made on the electronic document DICTATION DATE: 06/14/181727 HAND FRETTED INSTRUMENT MAKER: JUMANA 06/14/181727 RPT#: [id number] DC DATE: STATUS: ADM IN [facility] [address] [place] [address] END OF REPORT
--- NOTE | 2018-06-14 19:47 | NUR ---
EVENING ROUNDS COMPLETED. REPORT RECEIVED. PT SITTING UP ON SIDE OF BED WITH EYES OPEN, RR EVEN AND UNLABORED. CURRENTLY SPEAKING TO HIS . INTRODUCED SELF TO PT. PT DENIES FURTHER NEEDS AT THIS TIME. NO S/S OF DISTRESS NOTED. CALL LIGHT IN REACH. WILL CTM.
[2018-06-14 20:38] VITALS: BP 143/81
[2018-06-15] VITALS: BP 116/82
--- NOTE | 2018-06-15 | NUR ---
I have reviewed this patient and I concur with the Shift Assessment completed by the Licensed Practical Nurse today this shift.
[2018-06-15 04:00] VITALS: BP 151/85
[2018-06-15 05:27] LABS: BASOPHILS 0.2 % (0-2); EOSINOPHILS 1.8 % (0-7); HEMATOCRIT 39.1 % (42.0-54.0); HEMOGLOBIN 12.9 g/dL (13.5-17.5); IMMATURE GRANULOCYTES 1.9 % (0-5); LYMPHOCYTES 9.3 % (15-50); MCH 30.4 pg (26.0-34.0); MCV 92.2 fL (80.0-100.0); MEAN PLATELET VOLUME 12.1 fL (7.4-10.4); MONOCYTES 7.3 % (2-11); NEUTROPHILS 79.5 % (40-80); PLATELET COUNT 155 10x3/uL (130-400); RBC 4.24 10x6/uL (4.20-6.10); RDW 15.1 % (11.5-14.5); WBC 9.1 10x3/uL (4.8-10.8)
[2018-06-15 05:37] LABS: ANION GAP 14.6 mmol/L (8-16); CREATININE - SERUM 1.2 mg/dL (0.6-1.3); POTASSIUM - SERUM 3.9 mmol/L (3.5-5.1)
[2018-06-15 05:42] LABS: CARBON DIOXIDE 23.3 mmol/L (21.0-32.0)
[2018-06-15 08:18] VITALS: BP 149/101
[2018-06-15] MEDS ORDERED: Levaquin PO (12:12)
[2018-06-15 12:32] VITALS: BP 136/76
[2018-06-15 17:08] LABS: AEROBE ID Final report (())
--- NOTE | 2018-06-17 10:41 | MORECARE ---
CASE MANAGEMENT DISCHARGE SUMMARY PATIENT: SANTY SEO JR UNIT: [id number] ADM DATE: 06/07/18 AGE: 77 : 39 SEX: M ROOM/BED: D.2133 AUTHOR: TOBIN KIRKPATRICK PHYSICIAN: REFERRING PHYSICIAN: VEE BILLINGS MD DATE OF SERVICE: 06/17/18 Discharge Plan Patient Name: SANTY SEO Facility: [facility]:[place] : 1940 Planned Disposition: Home with Home Health Anticipated Discharge Date: 06/15/18 Discharge Date: 06/15/2018 Expected LOS: 8 Initial Reviewer: [email or web address] Initial Review Date: 06/11/2018 Generated: 06/17/18 11:41 am Comments DCP- Discharge Planning Updated by [email or web address]: Dave Pantoja on 06/17/18 9:[address] Patient Name: SANTY SEO Encounter No: [id number] : 1940 Primary Insurance: NOVASYSMCR Anticipated DC Date: 06-15-2018 Planned Disposition: Home with Home Health External Planned Provider: [facility] DCP follow-up note: CM REVIEWED CHART, PT DISCHARGED HOME OVER THE WEEKEND. CM NOTIFIED TERRY OF [facility] AT [phone], FAXED DISCHARGE INFORMATION TO [facility] AT [phone]. Lighting Engineering Technician: Dave Pantoja DCP- Discharge Planning Updated by [email or web address]: Dave Pantoja on 06/14/18 4:[address] Patient Name: SANTY SEO Admission Status: ER Accout number: [id number] Admission Date: 06-07-2018 : 1940 Admission Diagnosis:CELLULITIS OF LEFT UPPER LIMB Attending: Vee Billings Current LOS: 7 Anticipated DC Date: 06-15-2018 Planned Disposition: Home with Home Health Primary Insurance: NOVASYSMCR PLANNED EXTERNAL PROVIDER: [facility] Discharge Planning Comments: CM RECEIVED DISCHARGE PLANNING ORDER. CM MET WITH PT ND SPOUSE IN ROOM TO DISCUSS DISCHARGE NEEDS AND PLANNING. SANTY SEO provided verbal consent to discuss current and ongoing needs with/in the presence of:, SPOUSE, ANDREA. CM DISCUSSED AVAILABILITY OF HOME HEALTH, REHAB SERVICES AND MEDICAL EQUIPMENT. PT DENIES DISCHARGE NEEDS BUT WILL ACCEPT HOME HEALTH AT ENCOURAGEMENT OF SPOUSE. SPOUSE TO TRANSPORT HOME AT DISCHARGE. IMPORTANT MESSAGE FROM MEDICARE PROVIDED AND EXPLAINED. CHOICE LISTING PROVIDED, PT HAD NO CHOICE OF PROVIDER, CHOICE SIGNED FOR ANY HOME HEALTH. CM CALLED AND SPOKE TO GAYLE CHERRY WHO PROVIDED HOME HEALTH ORDER. CM CALLED [facility], , SPOKE TO TERRY, REFERRAL PROVIDED, PT PLACED ON SCHEDULE FOR NEXT WEEK. TERRY WILL CHECK WITH INSURANCE AND NOTIFY PT IF THERE IS ANY COPAY FOR HOME HEALTH SERVICES. FOR DISCHARGE, FAX DISCHARGE INFORMATION TO [facility] AT [phone], NOTIFY HOME HEALTH AT [phone]. Lighting Engineering Technician: Dave Pantoja DCP- Discharge Planning Updated by [email or web address]: Shameka Mckeon on 06/11/18 11:[address] Patient Name: SANTY SEO Admission Status: ER Accout number: [id number] Admission Date: 06-07-2018 : 1940 Admission Diagnosis: Attending: Vee Billings Current LOS: 4 Anticipated DC Date: Planned Disposition: Primary Insurance: NOVASYCR Discharge Planning Comments: CM MET WITH PATIENT ABOUT DC PLANNING/NEEDS. DENIES NEEDS AT THIS TIME. STATES PLANS TO DC TO HOME WITH WHEN BETTER. CM WILL FOLLOW AND ASSIST NEEDED WITH DC PLANNING/NEEDS. Lighting Engineering Technician: Shameka Mckeon DCPIA - Discharge Planning Initial Assessment Updated by [id number]: Shameka Mckeon on 06/11/18 12:41 pm * Is the patient Alert and Oriented? Yes * PCP JOAN * Pharmacy [facility] * Preadmission Environment Home with Family * ADLs Independent * Equipment None * List name and contact numbers for known caregivers / representatives who currently or will assist patient after discharge: DE MENDEZ, * Verbal permission to speak to the caregivers and representatives has been obtained from the patient. Yes * Community resources currently utilized None * Additional services required to return to the preadmission environment? No * Can the patient safely return to the preadmission environment? Yes * Has this patient been hospitalized within the prior 30 days at any hospital? No Coverage Notice Reviewer: [email or web address] - Dave Pantoja Notice Issued Date-Time: 06/14/2018 14:45 Notice Type: Patient Choice Letter Notice Delivered To: Patient Relationship to Patient: Acoustic Warfare Analyst Name: Delivery Method: HAND - Hand Delivered [place] Days: Prior Verbal Notification: Recipient Understood Notice: Yes Recipient Signature: Yes Med Rec Note Co-signed by Attending: Coverage Notice Comment: ANY [facility] IN NETWORK WITH INSURANCE Reviewer: [email or web address] Pia Pantoja Notice Issued Date-Time: 06/14/2018 14:45 Notice Type: IM Discharge Notice Notice Delivered To: Patient Relationship to Patient: Acoustic Warfare Analyst Name: Delivery Method: HAND - Hand Delivered [place] Days: Prior Verbal Notification: Recipient Understood Notice: Yes Recipient Signature: Yes Med Rec Note Co-signed by Attending: Coverage Notice Comment: Last DP export: 06/14/18 4:28 p Patient Name: SANTY SEO Page [phone] at 1041 All edits/amendments must be made on the electronic document DICTATION DATE: 06/17/18 1041 BOOT TRIMMER: JUMANA 06/17/18 1041 RPT#: [id number] DC DATE:06/15/18 STATUS: DIS IN [facility] [address] [place] [address] END OF REPORT
[2018-06-17 17:11] LABS: AEROBE ID Preliminary report (())
== END 2018-06-15 15:00 | disposition home health service (06) | DRG 603 ==
LOC: D.ER 18:58 → D.M2 21:49
PROVIDERS: Family Medicine; Internal Medicine Nephrology; ADMIT Internal Medicine Nephrology; ATTEND Internal Medicine Nephrology
DX: L03.114 Cellulitis of left upper limb (principal); L03.316 Cellulitis of umbilicus; Z94.0 Kidney transplant status; E11.9 Type 2 diabetes mellitus without complications; I10 Essential (primary) hypertension; I48.91 Unspecified atrial fibrillation; E87.6 Hypokalemia

== ENCOUNTER 2019-01-01 15:03 | Emergency (ER) | payer OTHER ==
[~2019-01-01] VITALS: Ht 177.8 cm; Wt 86.4 kg
[~2019-01-01 15:03] MED LIST changes: +CELEXA20 MG PO; +Levaquin PO; +SANDIMMUNE100 MG PO; +TERAZOSIN HCL2 MG PO
[2019-01-01 15:12] VITALS: Ht 177.8 cm; Wt 86.4 kg
[2019-01-01] MEDS ORDERED: NORVASC2.5 MG PO (15:16)
[2019-01-01] MEDS ORDERED: HUMULIN R100 U/ML SC (15:19)
[2019-01-01] MEDS ORDERED: VIBRAMYCIN 100100 MG PO (16:05)
[2019-01-01 16:15] VITALS: BP 140/72
== END 2019-01-01 16:16 | disposition home or self-care (01) ==
LOC: D.ER 15:03
DX: S41.112A Laceration without foreign body of left upper arm, initial encounter (principal); W01.0XXA Fall on same level from slipping, tripping and stumbling without subsequent striking against object, initial encounter; E11.9 Type 2 diabetes mellitus without complications; I10 Essential (primary) hypertension; Z94.0 Kidney transplant status

== ENCOUNTER 2019-02-17 11:11 | Outpatient (CLI) | payer OTHER ==
[~2019-02-17] VITALS: Ht 177.8 cm; Wt 90.5 kg
--- NOTE | ~2019-02-17 | HEMODYNAMI ---
PATIENT:SANTY SEO JR MEDICAL RECORD: [id number] : 38 LOCATION:D.CAT ADMISSION DATE: 02/17/19 Generatedon:02/17/201913:11 Patient name: SANTY SEO Patient #: [id number] SSN: : 1940 Date of study: 02/17/2019 Page: Of Hemodynamic Procedure Report Patient Data Patient Demographics Procedure consent was obtained First Name: SANTY Gender: Male Last Name: RAYRAY Suffix: [facility] Initial: ZULEMA : 1940 Patient #: [id number] Age: 78 year(s) Race: Additional ID: [id number] Contact details Address: [address] [place] [address] State: [place] City: [facility] [place] Zip code: [address] Past Medical History Allergies Allergen Reaction Date Comments Reported Other allergy 02/17/2019 Iodine and Mercury Admission Admission Data Admission Date: 02/17/2019 Admission Time: 11:11 Arrival Date: 02/17/2019 Arrival Time: 0:00 Admit Source: Other Insurance Payor: Private health insurance [facility] #: [id number] Height (in.): 70 BSA: 2.14 (m2) Height (cm.): 177.8 BMI: 30.42 (kg/m2) Weight (lbs.): 212 Weight (kg.): 96.16 Lab Results Lab Result Date: 02/17/2019 Lab Result Time: 0:00 CBC Name Units Result Min Max Hematocrit % 46.9 --(-*--)-- 42 54 Hemoglobin g/dl 15.8 --(--*-)-- 13.5 17.5 Procedure Procedure Types Cath Procedure Diagnostic Procedure Cardioversion External Procedure Description Procedure Date Procedure Date: 02/17/2019 Procedure Start Time: 12:59 Procedure End Time: 13:07 Procedure Staff Name Function Frantz Jameson MD Performing Physician Juventino Ley RN Nurse Yancy Wadsworth RT Monitor Dorcas Arboleda RT Monitor Sp Lange MD Additional personnel Indication Atrial fibrillation w/cardioversion Procedure Data Procedure Complications No complications Procedure Medications Medication Administration Route Dosage Oxygen etCO2 Nasal cannula 2 l/min Refer to Anesthesia Notes for Sedation Medications Hemodynamics Rest BSA: 2.14 (m2) HGB: 15.8 (g/dl) O2 Consumption: Estimated: 255.13 (ml/min) O2 Consumption indexed: Estimated:119.22 (ml/min/m) Heart Rate: 83 (bpm) Snapshots Pre Cath Intra NCS Post Cath Vital Signs Time Heart Resp SPO2 etCO2 NIBP (mmHg) Rhythm Pain Sedation Rate (ipm) (%) (mmHg) Status Level (bpm) 12:57:55 77 14 99 25.3 148/82(0) NSR 0 (11) 10(A) , No pain 12:59:54 68 12 99 32.1 159/80(109) NSR 0 (11) 9(A) , No pain 13:03:48 52 15 99 34.3 115/66(96) NSR 0 (11) 10(A) , No pain Medications Time Medication Route Dose Verified Delivered Reason Notes Effective ness by by 12:47:41 Oxygen etCO2 2 Frantz Jauregui used for Nasal l/min [facility] Renato Ley RN procedure cannula 13:00:02 Refer to Frantz Jauregui Anesthesia [facility] Renato Ley RN Notes for MD Sedation Medications Procedure Log Time Note 12:40:41 Arrival Date: 02/17/2019 12:00:00 AM 12:40:45 Admit Source: Other 12:40:47 Insurance Payor : Private health insurance 12:43:09 Patient Weight : 212 lbs 12:43:15 Patient Height : 70 inches 12:47:41 Oxygen 2 l/min etCO2 Nasal cannula was administered by Juventino Ley RN; used for procedure; Verbal order read back and verified. 12:48:04 Procedure Status Cardioversion. 12:48:08 Juventino Ley RN sent for patient. Start room use. 12:48:11 Time tracking: Regular hours (M-F 7:00 - 5:00) 12:48:16 Plan of Care:Hemodynamics will remain stable., Cardiac rhythm will remain stable., Comfort level will be maintained., Respiratory function will remain adequate., Patient/ family verbilizes understanding of procedure., Procedure tolerated without complication., Recovers from procedure without complications.. 12:48:29 Signed procedure consent form obtained from patient. 12:48:30 Warm blankets applied, and brennan hugger turned on for patient comfort. 12:48:31 Correct patient and procedure confirmed by team. 12:48:32 ECG and BP/O2 sat monitors applied to patient. 12:50:00 Diagnostic Cath Status : Elective 12:50:46 Indication : Atrial fibrillation w/cardioversion 12:51:16 Patient arrived from Pre/Post Procedure Room to CCL 1. Patient remains on bed/stretcher for procedure. 12:51:27 Vital chart was started 12:51:41 Rhythm: atrial fibrillation 12:51:44 Full Disclosure recording started 12:51:50 H&P Date Dictated: 02/17/2019 Within 30 days and on chart.. 12:51:52 Pre-procedure instructions explained to patient. 12:51:53 Pre-op teaching completed and patient verbalized understanding. 12:51:56 Family in patients room. 12:51:58 Patient NPO since Midnight. 12:52:15 Patient allergic to Other allergyIodine and Mercury 12:52:18 Is the patient allergic to Iodine/contrast media? No. 12:52:25 Was the patient premedicated? N/A 12:52:27 Is patient on blood thinner?Yes 12:52:32 ACC The patient was administered the following blood thiners within the last 24 hours: Xarelto 12:52:35 Patient diabetic? Yes. 12:52:37 If diabetic: On Metformin? No 12:52:44 Previous problem with sedation/anesthesia? No ? 12:52:47 Snore? Yes 12:52:49 Sleep apnea? No 12:52:50 Deviated septum? No 12:52:51 Opens mouth fully? Yes 12:52:53 Sticks out tongue? Yes 12:52:55 Airway obstruction? No ? 12:53:05 Dentures? Yes top in tight 12:53:16 IV patent on arrival in right hand with 0.9% NaCl at O. 12:54:28 Lab Result : Hemoglobin 15.8 g/dl 12:54:28 Lab Result : Hematocrit 46.9 % 12:54:35 Lab results completed and on chart. 12:54:40 Stress Test: no; N/A ? 12:54:52 Alarms reviewed by Artis Krishnamurthy 12:55:07 PT IS RESERVED LT ARM 12:56:04 Quick Combo opened to sterile field. 12:57:26 Baseline sample Acquired. 12:58:21 Sp Lange MD present and monitoring patient for TIVA. 12:58:25 --------ALL STOP TIME OUT------ 12:58:27 Final Timeout: patient, procedure, and site verified with staff and physician. All members of the team are in agreement. 12:58:58 Sedation plan: TIVA Medication:Propofol 12:59:36 Procedure started. 12:59:39 ------Cardioversion------ 12:59:41 Quick combo pads placed on patients chest and back. 13:00:02 Refer to Anesthesia Notes for Sedation Medications was administered by Juventino Ley RN; ; Verbal order read back and verified. 13:01:02 Defibrillator synced and charged to 200 Joules. 13:01:17 Shock delivered. 13:02:50 Patient cardioverted to sinus bradycardia WITH PAC 13:03:59 Procedure ended.(Physican Out) 13:06:31 Post-procedure physical assessment completed. ASA score P 2 - A patient with mild systemic disease as per Frantz Jameson MD. 13:06:38 Post procedure rhythm: sinus bradycardia 13:06:42 Post procedure instruction explained to patient.Patient verbalizes understanding. 13:06:43 Patient needs reinforcement of post procedure teaching. 13:07:22 Procedure and supply charges have been captured, reviewed, submitted and are correct. 13:07:27 Procedure Complication : No complications 13:07:35 Operative report dictated upon procedure completion. 13:07:37 See physician's report for complete and final results. 13:07:39 Report given to Pre/Post Procedure Room. 13:07:43 Patient transfered to Pre/Post Procedure Room with Stretcher. 13:07:52 Vital chart was stopped 13:07:56 Procedure ended. 13:07:56 Full Disclosure recording stopped 13:08:05 End room use (Document Last) 13:08:24 End room use (Document Last) 13:08:42 End room use (Document Last) Device Usage Item Manufacture Quantity Catalog Hospital Part Current Minimal Lot# / Name Number Charge Number Stock Stock Seri al# Code [place] 1 [id number] Combo Signature Audit [place] Stage Time Signature Unsigned Intra-Procedure 02/17/2019 Dorcas Arboleda 1:08:24 PM RT(R) Intra-Procedure 02/17/2019 Juventino Ley RN 1:08:42 PM Intra-Procedure 02/17/2019 Frnatz Hannah 1:11:20 PM Renato [facility] [address] [place] [address]
[~2019-02-17 11:11] MED LIST changes: +HUMULIN R100 U/ML SC; +NORVASC2.5 MG PO; +VIBRAMYCIN 100100 MG PO
[2019-02-17 12:14] VITALS: Ht 177.8 cm; Wt 90.5 kg
[2019-02-17 12:37] LABS: BASOPHILS 0.3 % (0-2); EOSINOPHILS 1.6 % (0-7); HEMATOCRIT 46.9 % (42.0-54.0); HEMOGLOBIN 15.8 g/dL (13.5-17.5); LYMPHOCYTES 17.9 % (15-50); MCH 31.5 pg (26.0-34.0); MCHC 33.7 g/dL (31.0-37.0); MCV 93.6 fL (80.0-100.0); MEAN PLATELET VOLUME 11.5 fL (7.4-10.4); MONOCYTES 6.2 % (2-11); RBC 5.01 10x6/uL (4.20-6.10); RDW 14.5 % (11.5-14.5); WBC 9.8 10x3/uL (4.8-10.8)
[2019-02-17 12:46] LABS: PLATELET COUNT 87 10x3/uL (130-400)
[2019-02-17 12:47] LABS: INR 2.61 (0.85-1.17); PROTIME 27.2 SECONDS (11.6-15.0)
[2019-02-17 12:51] LABS: ANION GAP 12.1 mmol/L (8-16); CALCIUM 9.1 mg/dL (8.5-10.1); CARBON DIOXIDE 29.8 mmol/L (21.0-32.0); CREATININE - SERUM 1.5 mg/dL (0.6-1.3)
[2019-02-17 12:54] LABS: POTASSIUM - SERUM 2.9 mmol/L (3.5-5.1)
--- NOTE | 2019-02-17 13:18 | NUR ---
PT ARRIVED IN ROOM BY STRETCHER. FAMILY AT BEDSIDE. DR. SUÁREZ ROUNDED AND SPOKE WITH FAMILY. PT PLACED ON MONITORS AND ASSESSMENT COMPLETED.
[2019-02-17] MEDS ORDERED: K-DUR20 MEQ PO ×2 (13:30→14:18)
--- NOTE | 2019-02-17 13:30 | NUR ---
PT RESTING COMFORTABLY. TOOK PO POTASSIUM PER MD ORDERS. VSS. HR. NSR. RATE 63. NO NEEDS AT THIS TIME. FAMILY AT BEDSIDE. CALL LIGHT WITHIN REACH.
[2019-02-17 13:47] LABS: PLATELET ESTIMATE DECREASED
[2019-02-17 13:48] LABS: ANISOCYTOSIS OCC; ROULEAUX OCC
--- NOTE | 2019-02-17 14:00 | NUR ---
PT RESTING COMFORTABLY. VSS. HR 64. NSR WITH OCCASIONAL PACs AND PVCs. ECTOPY HAS LESSENED SINCE ARRIVAL TO RECOVERY ROOM. PIV D/C'D WITH CATH TIP INTACT. TOLERATED WELL. DENIES NAUSEA/PAIN AT THIS TIME. PT INSTRUCTED TO GET UP AND DRESSED. CALL LIGHT WITHIN REACH. FAMILY AT BEDSIDE TO ASSIST.
--- NOTE | 2019-02-17 14:30 | NUR ---
DISCUSSED DISCHARGE INSTRUCTIONS WITH PT AND PT'S FAMILY. THEY VOICED UNDERSTANDING. PT TAKEN OUT TO VEHICLE BY WHEELCHAIR. NO S/S OF DISTRESS NOTED. ALL BELONGINGS AND PAPERWORK IN HAND.
--- NOTE | 2019-02-18 14:43 | OP ---
PATIENT NAME: SANTY SEO JR MEDICAL RECORD: [id number] :[birth year] LOCATION:D.CAT ADMISSION DATE: SURGEON: MATTIE ARECHIGA MD DATE OF OPERATION: 02/17/2019 PROCEDURE: Cardioversion. DESCRIPTION OF PROCEDURE: After general sedation via TIVA via anesthesia, a single synchronized shock was successful in restoring atrial fibrillation to normal sinus rhythm. IMPRESSION: Successful atrial fibrillation to normal sinus rhythm. COMPLICATIONS: None. DISPOSITION: To the floor, stable. TRANSINT:[id number] Voice Confirmation ID: [id number] DOCUMENT ID: [id number] MATTIE ARECHIGA MD at 1443 CC: [id number] DICTATION DATE: 02/17/19 1309 ECOLOGICAL MODELER: 02/17/19 1323 DEP CLI 02/17/19 [address] [place] [address]
== END 2019-02-17 14:30 | disposition home or self-care (01) ==
LOC: D.CATH 11:11
PROVIDERS: ATTEND Internal Medicine Interventional Cardiology
DX: I48.91 Unspecified atrial fibrillation (principal)

== ENCOUNTER → 2019-03-12 09:48 | Outpatient (CLI) | payer OTHER ==
[2019-02-17 12:14] VITALS: BMI 28.6
[~2019-03-12 09:48] MED LIST changes: +K-DUR20 MEQ PO
--- NOTE | 2019-03-14 13:04 | EC ---
PATIENT:SANTY SEO JR DATE OF SERVICE: 03/12/19 SEX: M MEDICAL RECORD: [id number] DATE OF : [birth year] LOCATION:D.[facility] AGE OF PATIENT: 78 ADMISSION DATE: 03/12/19 REFERRING PHYSICIAN: INTERPRETING PHYSICIAN: MATTIE ARECHIGA MD ECHOCARDIOGRAM REPORT ECHO CHARGES 4 ECHO COMPLETE Date: 03/12/19 CLINICAL DIAGNOSIS: A-FLUTTER/DYSPNEA H/O A-FIB/CVA/HTN ECHOCARDIOGRAPHIC MEASUREMENTS (adult normal given) AC root (d.<3.7cm) 3.7 cm LV Septum d (<1.2 cm> 1.6 cm Valve Excursion 2.1 cm LV Septum (systole) 2.0 cm Left Atria (s.<4.0cm> 4.3 cm LVPW d(<1.2cm) 1.2 cm RV (d.<2.3cm) 2.6 cm LVPW (sytole) 1.8 cm LV diastole(<5.6CM) 5.3 cm MV E-F(>70mm/sec) cm LV systole 3.0 cm LVOT Diameter 2.1 cm MV exc.(>10mm) cm Est.ejection fraction (50-75%) % DOPPLER: LVIT cm/sec A 56.0 cm/sec E 135 cm/sec LA cm/sec RVSP 63.0 mmHg LVOT 73.0 cm/sec AOP1/2T m/s Asc. Ao 113 cm/sec RVOT 67.0 cm/sec RA cm/sec PA 79.0 cm/sec AV Gradient Peak 5.1 mmHg AV Mean 2.8 mmHg AV Area 2.2 cm MV Gradient Peak 8.7 mmHg MV Mean 3.0 mmHg MV Area cm COMMENTS: OP - HC Marketing Professional: 1 JE W[place]OE French Drawer: 3 Dr. Luther TAPE# PACS Pericardial Effusion N DATE OF SERVICE: 03/12/2019 Adequate 2-D, color-flow imaging, spectral Doppler, and M-mode. LVH is present. LV internal dimensions are normal. Wall motion is normal. EF is greater than or equal to 55%. Aortic valve is tricuspid. No evidence of stenosis by Doppler interrogation. Left atrium mildly dilated at 4.3 cm. Mitral valve shows no prolapse. Trace to mild MR. Right-sided chambers are grossly normal. Trace TR. ECHOCARDIOGRAM REPORT [id number] SANTY SEO JR TRANSINT:[id number] Voice Confirmation ID: [id number] DOCUMENT ID: [id number] MATTIE ARECHIGA MD at 1304 CC: [id number] DICTATION DATE: 03/13/19 1503 JEWEL WAXER: 03/14/19 0002 DEP CLI 03/12/19 [address] [id number] [place] [address]
== END | disposition home or self-care (01) ==
LOC: D.HCCECHO 09:48
PROVIDERS: ATTEND Internal Medicine Interventional Cardiology
DX: I48.91 Unspecified atrial fibrillation (principal)